=== PATIENT | female | born 1945 | race Caucasian/White ===

== ENCOUNTER → 2017-07-10 | Emergency (ER) | payer MEDICARE, OTHER ==
[~2017-07-10] VITALS: Ht 162.6 cm; Wt 52.2 kg
[~2017-07-10] MED LIST: ASPIR 8181 MG PO; CITALOPRAM HBR20 MG PO
== END ==
LOC: ED 20:45
DX: S00.11XA Contusion of right eyelid and periocular area, initial encounter (principal); S00.531A Contusion of lip, initial encounter; Z88.2 Allergy status to sulfonamides; Z79.82 Long term (current) use of aspirin; Z79.899 Other long term (current) drug therapy; W10.9XXA Fall (on) (from) unspecified stairs and steps, initial encounter
CPT/HCPCS: 70450; 70486; 99284

== ENCOUNTER 2018-01-24 09:03 | Day surgery (SDC) | payer MEDICARE, OTHER ==
[~2018-01-24] VITALS: Ht 162.6 cm; Wt 53.1 kg
[2018-01-24] MEDS ORDERED: CITALOPRAM HBR40 MG PO (09:28)
--- NOTE | 2018-01-24 11:40 | NUR ---
01/24/18 1140 Kailyn Morgan 1135 PATIENT ARRIVES TO PACU SLEEPING, OPENS EYES TO VERBAL STIMULI, DENIES PAIN OR NAUSEA, THEN BACK TO SLEEP. RESP EVEN AND UNLABORED, ARRIVES WITH NASAL CANULA ON AT 3 LITERS, OXYGEN TURNED OFF AFTER ARRIVING TO PACU WITH ROOM AIR SATS AT 98%. PATIENT PASSING GAS.
--- NOTE | 2018-01-26 12:47 | OR ---
[facility] [address], [place] [address] Signed DATE OF OPERATION: SURGEON: Aurora Armenta MD PREOPERATIVE DIAGNOSIS: Colon screening. POSTOPERATIVE DIAGNOSIS: Sigmoid diverticulosis. PROCEDURE: Total colonoscopy to cecum. ANESTHESIA: Intravenous sedation, fentanyl 100 mcg, Versed 6 mg. INDICATION: This 72-year-old white woman is a patient of Dr. Peck and is referred for screening colonoscopy. She underwent colonoscopy in the past in [place] number of years ago. She does have family history of colon cancer in her grandmother. She is free of symptoms of bleeding, diarrhea, and constipation. She understands the risks of bleeding, infection, and perforation related to colonoscopy and wished to proceed. FINDINGS: The prep was excellent. Complete colonoscopy was undertaken to the cecum. She had a markedly redundant colon. Colonoscopy was performed without complication, but was challenging on the basis of her redundant colon. The cecum was clearly intubated. The colon was well prepped and there was no sign of abnormality other than diverticula of the sigmoid. DESCRIPTION OF PROCEDURE: The patient was brought to the endoscopy suite and placed in lateral decubitus position and given intravenous sedation to the point of slurred speech and nystagmus. Digital rectal examination was normal. An Olympus video colonoscope was passed in the rectum and manipulated throughout the colon. Abdominal wall stabilization was required in the region of the transverse colon. There was a fair amount of redundancy of the colon. Ultimately, she was placed in a supine position and the scope withdrawn as far as possible then readvanced and ultimately the cecum was intubated. The ileocecal valve and appendiceal orifice were normal. Irrigation was undertaken as needed and the scope was then withdrawn. Careful Electronically Signed By: AURORA ARMENTA MD 01/26/18 1247 PATIENT NAME: ANTHONY PARADA OPERATIVE REPORT DATE OF : 45 REPORT #: [id number] PHYSICIAN: AURORA ARMENTA MD PCP: Melissa PECK MD REPORT IS CONFIDENTIAL AND NOT TO BE RELEASED WITHOUT AUTHORIZATION [facility] [address], [place] [address] Signed inspection throughout upon withdrawal of scope showed no sign of polyps or colitis, but did confirm diverticular changes of the sigmoid and left colon. The rectum was normal. Scope was removed and the patient was taken to recovery room in good condition. CONCLUDING DIAGNOSIS: Diverticular changes of sigmoid. No sign of polyp. PLAN: Recommend repeat colonoscopy in 10 years if clinically appropriate. High-fiber diet is recommended otherwise. MD MIRZA Adrian/DENNYSL /[id number] cc: Melissa Peck MD Copies: Melissa PECK MD ~ Electronically Signed By: AURORA ARMENTA MD 01/26/18 1247 PATIENT NAME: ANTHONY PARADA OPERATIVE REPORT DATE OF : 45 REPORT #: [id number] PHYSICIAN: AURORA ARMENTA MD PCP: Melissa PECK MD REPORT IS CONFIDENTIAL AND NOT TO BE RELEASED WITHOUT AUTHORIZATION
== END 2018-01-24 12:05 | disposition home or self-care (01) ==
LOC: DS 09:03 → OPS 09:03 → DS 10:00 → OPS 10:00
PROVIDERS: Surgery
PROC: 0DJD8ZZ Inspection of Lower Intestinal Tract, Via Natural or Artificial Opening Endoscopic (ICD-10-PCS; principal; 2018-01-24 10:00)
DX: Z12.11 Encounter for screening for malignant neoplasm of colon (principal); K57.30 Diverticulosis of large intestine without perforation or abscess without bleeding; Z80.0 Family history of malignant neoplasm of digestive organs; Z88.5 Allergy status to narcotic agent; Z88.2 Allergy status to sulfonamides; Z88.8 Allergy status to other drugs, medicaments and biological substances
CPT/HCPCS: 99153; G0500; J2250; J3010

== ENCOUNTER 2024-12-21 11:35 | Day surgery (SDC) | payer MEDICARE, OTHER ==
[~2024-12-21] VITALS: Ht 162.6 cm; Wt 51.8 kg
[~2024-12-21 11:35] MED LIST changes: +CELEXA10 MG PO; +CITALOPRAM HBR40 MG PO; +IBLOOD GLUCOSE TEST STRIP 1 EA TEST VI PRN; +LACTATED RINGER'S 1,000 ML IV SCH; +LIDOCAINE HCL 1% 5 ML SDV INJ ONE; +MIDAZOLAM HCL 5 MG/5 ML VIAL IV PRN; +OXYBUTYNIN CHLOR5 MG PO; +PROBIOTIC1 EAC1 PO; +fentaNYL citrate 100 MCG/2 ML VIAL IV PRN
[2024-12-21] MEDS ORDERED: fentaNYL citrate 100 MCG/2 ML VIAL ONE (11:58)
[2024-12-21] MEDS ORDERED: MIDAZOLAM HCL 5 MG/5 ML VIAL ONE (11:58)
[2024-12-21 12:37] VITALS: BP 141/73
[2024-12-21] MEDS ORDERED: VITAMIN D325 MCG (12:41)
[2024-12-21] MEDS ORDERED: FISH OIL 1,0001 EAC5 PO (12:42)
--- NOTE | 2024-12-21 14:35 | NUR ---
12/21/24 1435 Kayli King 1404 PT ARRIVED IN PACU SLEEPY. ABD SOFT AND PASSING FLATUS. 1415 DR AT BEDSIDE. ALL QUESTIONS ANSWERED. 1430 RESTING. REU.
[2024-12-21 15:01] VITALS: BP 131/71
--- NOTE | 2024-12-22 12:42 | OR ---
[facility] [address], [place] [address] Signed DATE OF OPERATION: 12/21/2024 SURGEON: Aurora Armenta MD PREOPERATIVE DIAGNOSIS: Polyps of the Cologuard test. POSTOPERATIVE DIAGNOSIS: Adenomatous polyp of rectosigmoid and small polyp of sigmoid. PROCEDURE: Total colonoscopy to cecum with cold morcellation polypectomy x2. ANESTHESIA: Intravenous sedation; fentanyl 100 mcg and Versed 5 mg. INDICATION: This 79-year-old white woman is a patient of Igor Martin. She underwent Cologuard testing which was positive. The study was done on 07/15/2024. She has no family history of colon cancer in a first-degree relative, though her maternal grandmother is thought to have had colon cancer. She is admitted at this time to undergo colonoscopy. She understands the risk of bleeding, infection, and perforation. FINDINGS: The prep was excellent. Complete colonoscopy was undertaken of the cecum with full intubation of the cecum. Examination throughout showed an area probably of hyperplasia or possibly hyperplastic polyp of the left colon which was excised with cold morcellation technique and an obvious adenomatous polyp of the rectosigmoid, excised with cold morcellation technique. The remaining colon was normal. She did have several diverticula, however. DESCRIPTION OF PROCEDURE: The patient was brought to the endoscopy suite and placed in the lateral decubitus position, given intravenous sedation to the point of slurred speech and nystagmus. Digital rectal examination was normal. An Olympus video colonoscope was passed in the rectum and manipulated throughout the colon ultimately intubating the cecum itself. The ileocecal valve and appendiceal orifice were normal. The scope was withdrawn from that point and examination throughout showed no sign of abnormality until the left colon in the area of the sigmoid, which Electronically Signed By: AURORA ARMENTA MD 12/22/24 1242 PATIENT NAME: ANTHONY PARADA OPERATIVE REPORT DATE OF : 45 REPORT #: [id number] PHYSICIAN: AURORA ARMENTA MD PCP: IGOR MARTIN DO REPORT IS CONFIDENTIAL AND NOT TO BE RELEASED WITHOUT AUTHORIZATION [facility] [address], [place] [address] Signed showed an area of possible hyperplastic polyp or perhaps simple hyperplasia. This was excised with cold morcellation technique. Further withdrawal of the scope allowed for visualization of the rectosigmoid polyp, quite clearly an adenoma. This was excised completely with cold morcellation technique. Retroflexed view of the rectum was normal. Scope was removed and the patient was taken to the recovery room in good condition. CONCLUDING DIAGNOSIS: Polyps x2. PLAN: Recommend repeat colonoscopy in 7 to 10 years, sooner if symptoms should develop. She will return to the ongoing care of Igor Martin. MD MIRZA Adrian/ALISON /[id number] cc: Dr. Martin Copies: ~ Electronically Signed By: AURORA ARMENTA MD 12/22/24 1242 PATIENT NAME: ANTHONY PARADA OPERATIVE REPORT DATE OF : 45 REPORT #: [id number] PHYSICIAN: AURORA ARMENTA MD PCP: IGOR MARTIN DO REPORT IS CONFIDENTIAL AND NOT TO BE RELEASED WITHOUT AUTHORIZATION
--- NOTE | 2024-12-23 11:12 | PATH ---
[facility] [place] [facility] [address] [place], [place] [address] Signed SPECIMEN(S): A SIGMOID COLON BIOPSY SPECIMEN(S): B RECTOSIGMOID POLYP SPECIMEN SOURCE: A. SIGMOID COLON BIOPSY B. RECTOSIGMOID POLYP CLINICAL HISTORY: Pre-: Positive Cologuard 06/2024 no history of polyps. Post: Polyps x 2. FINAL PATHOLOGIC DIAGNOSIS: A. Sigmoid colon, biopsy: - Benign colonic mucosa with no significant pathologic abnormality. - No colitis or neoplasm identified. B. Rectosigmoid polyp: - Tubular adenoma. - Negative for high-grade dysplasia or malignancy. [facility] MICROSCOPIC EXAMINATION: Histologic sections of all submitted blocks are examined by light microscopy. These findings, together with the gross examination, support the pathologic diagnosis. GROSS DESCRIPTION: A. The specimen, labeled and designated "Javy Parada, sigmoid colon biopsy," is received in formalin and consists of five caballero soft tissue fragments, ranging from 0.2-0.3 cm. Entirely submitted in (A1). B. The specimen, labeled and designated "Zeynep, D, rectosigmoid polyp," is received in formalin and consists of three caballero soft tissue fragments, ranging from 0.3 -0.4 cm. Entirely submitted in (B1). AB (under the direct supervision of a pathologist) The Gross Description was prepared using a voice recognition system. The report was reviewed for accuracy; however, sound-alike word errors, addition and/or deletions may occur. If there is any question about this report, please contact Client Services. ADDITIONAL NOTES: Immunohistochemical and/or in situ hybridization studies if performed in this case included appropriate positive controls that reacted as expected. This test was developed and its performance PATIENT NAME: ANTHONY PARADA PATHOLOGY DATE OF : 45 REPORT #: [id number] PHYSICIAN: KIARA PATHOLOGY PCP: ALMAS MARTIN DO REPORT IS CONFIDENTIAL AND NOT TO BE RELEASED WITHOUT AUTHORIZATION [facility] [place] [facility] [address] [place], [place] [address] Signed characteristics determined by [facility]. It has not been cleared or approved by the U.S. Food and Drug Administration. The FDA has determined that such clearance or approval is not necessary. This test is used for clinical purposes. It should not be regarded as investigational or for research. [facility] is certified under the Clinical Laboratory Improvement Amendments of 1988 (CLIA) as qualified to perform high complexity clinical laboratory testing. PERFORMING LABORATORY: Technical component was performed by [facility], [address] [place] [id number] (CLIA# [id number]). Professional interpretation was performed by [facility], [address] [place] [id number] (CLIA#: [id number]). Diagnostician: Stevan Chua MD Pathologist Electronically Signed 12/23/2024 Copies: ~ PATIENT NAME: ANTHONY PARADA PATHOLOGY DATE OF : 45 REPORT #: [id number] PHYSICIAN: KIARA HARRISON PCP: ALMAS MARTIN DO REPORT IS CONFIDENTIAL AND NOT TO BE RELEASED WITHOUT AUTHORIZATION
== END 2024-12-21 15:22 | disposition home or self-care (01) ==
LOC: DS 11:35
PROVIDERS: ATTEND Surgery
PROC: 0DBN8ZZ Excision of Sigmoid Colon, Via Natural or Artificial Opening Endoscopic (ICD-10-PCS; 2024-12-21)
PROC: 0DBG8ZZ Excision of Left Large Intestine, Via Natural or Artificial Opening Endoscopic (ICD-10-PCS; principal; 2024-12-21 13:00)
DX: D12.7 Benign neoplasm of rectosigmoid junction (principal); K63.5 Polyp of colon; Z88.2 Allergy status to sulfonamides; Z88.5 Allergy status to narcotic agent
CPT/HCPCS: 88305; 99153; G0500; J2250; J3010; J7121